=== PATIENT | male | born 1930 | race Caucasian/White ===

== ENCOUNTER → 2017-04-14 | Outpatient (CLI) | payer OTHER ==
--- NOTE | 2017-04-14 12:39 | REP ---
MRA BRAIN WITHOUT CONTRAST: HISTORY: Infarction. 3D [id number] MR angiography was performed at the level of the [place]. There is no aneurysm or arteriovenous malformation. Mild atherosclerotic disease involves the cavernous and supraclinoid internal carotid arteries. Major intracranial vessels are patent. The vertebral arteries are equal in size. IMPRESSION: 1. There is no aneurysm or arteriovenous malformation. 2. Atherosclerotic disease as described above. Signed by Huan Melton MD 04/14/2017 01:33 P
--- NOTE | 2017-04-14 12:44 | REP ---
MRA CAROTIDS WITHOUT CONTRAST: HISTORY: Infarction. 2D [id number] MR angiography was performed at the level of the carotid bifurcations. There is mild stenosis of 10% of the right internal carotid artery at its origin. The origin of the right external carotid artery is normal. There is moderate stenosis of 60% of the left internal carotid artery at its origin. There is mild stenosis of 25% at the left external carotid artery at its origin. The vertebral arteries are equal in size and patent. IMPRESSION: 1. Mild stenosis of 10% of the right internal carotid artery at its origin. 2. 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 Signed by Huan Melton MD 04/14/2017 01:33 P
== END ==
LOC: M PLARAD 10:28
PROVIDERS: ATTEND Psychiatry & Neurology Neurology
DX: I63.9 Cerebral infarction, unspecified (principal)

== ENCOUNTER → 2017-08-01 | Outpatient (CLI) | payer OTHER | LOC: M PLARAD 12:55 | DX: I70.8 Atherosclerosis of other arteries (principal); I65.29 Occlusion and stenosis of unspecified carotid artery; I67.89 Other cerebrovascular disease; I66.9 Occlusion and stenosis of unspecified cerebral artery | CPT/HCPCS: 70544 ==